=== PATIENT | male | born 1980 | race Caucasian/White ===

== ENCOUNTER 2020-09-21 22:58 | Emergency (ER) | payer BC ==
[~2020-09-21] VITALS: Ht 175.3 cm; Wt 77.1 kg
[2020-09-21 23:05] VITALS: BP_SYST 153
[2020-09-22 00:18] LABS: BASOPHILS % (AUTO) 0.3 % (0.0-2.0); EOSINOPHILS # (AUTO) 0.2 K/uL (0.0-0.4); EOSINOPHILS % (AUTO) 2.8 % (0.0-4.0); HEMATOCRIT 42.3 % (36-54); HEMOGLOBIN 14.3 g/dL (14.0-18.0); LYMPHOCYTES # (AUTO) 1.6 K/uL (1.0-5.5); LYMPHOCYTES % (AUTO) 21.7 % (20.5-51.5); MEAN CORPUSCULAR HEMOGLOBIN 31 pg (27-31); MEAN CORPUSCULAR HGB CONC 34 % (32-36); MEAN CORPUSCULAR VOLUME 91 fL (79.0-98.0); MONOCYTES # (AUTO) 0.4 K/uL (0.0-1.0); MONOCYTES % (AUTO) 5.2 % (1.7-9.3); NEUTROPHILS # (AUTO) 5.2 K/uL (1.8-7.7); PLATELET COUNT (AUTO) 258 K/uL (130-430); RED BLOOD CELL COUNT(AUTO) 4.68 MIL/uL (4.2-6.2); RED CELL DISTRIBUTION WIDTH 13.7 % (9.0-15.0); WHITE BLOOD COUNT (AUTO) 7.4 K/uL (4.8-10.8)
[2020-09-22 00:32] LABS: CALCIUM 8.6 mg/dL (8.4-11.0); CREATININE 1.17 mg/dL (0.55-1.30); POTASSIUM 3.8 mmol/L (3.5-5.1)
[2020-09-22 00:38] LABS: TOTAL BILIRUBIN 0.3 mg/dL (0.0-1.0)
[2020-09-22] MEDS ORDERED: cephALEXin 500 MG CAPSULE PO ONE (01:00)
[2020-09-22] MEDS ORDERED: CEPH250C PO (01:26)
[2020-09-22] MEDS ORDERED: DIPH25CA83 PO (01:28)
[2020-09-22 01:42] VITALS: BP_SYST 136
== END 2020-09-22 01:42 | disposition home or self-care (01) ==
LOC: SED 22:58
DX: N43.3 Hydrocele, unspecified (principal); N49.2 Inflammatory disorders of scrotum; L25.9 Unspecified contact dermatitis, unspecified cause
CPT/HCPCS: 36415; 76870-TC; 80053; 85025; 99284

== ENCOUNTER 2021-09-28 03:47 | Emergency (ER) | payer BC ==
[~2021-09-28] VITALS: Ht 175.3 cm; Wt 81.6 kg
[~2021-09-28 03:47] MED LIST: DIPH25CA83 PO
[2021-09-28 03:55] VITALS: BP_SYST 130
--- NOTE | 2021-09-28 04:01 | NUR ---
Patient to ER bed 6 to gown for evaluation. Side rails up. Report given to Mejia GREEN.
--- NOTE | 2021-09-28 04:03 | NUR ---
ER at bedside examining patient.
--- NOTE | 2021-09-28 04:13 | NUR ---
41 YR OLD MALE WITH COMPLAINT OF LACERATION TWO DAYS AGO REPAIRED AT AN URGENT CARE WITH DERMABOND AND STERI-STRIPS. PT IS CONCERNED ABOUT A MILD HEADACHE AND WANTED A WOUND CHECK BECAUSE HE WASNT SURE THAT HIS WOUND WAS PREPARED CORRECTLY. PT DENIES ANY HEALTH CONDITIONS. MD AT THE BEDSIDE, BANDAGE REMOVED AND WOUND CHECKED. WILL MONITOR NEEDED
[2021-09-28 04:15] VITALS: BP_SYST 130
--- NOTE | 2021-09-28 04:17 | NUR ---
PT WOUND COVERED WITH NEW STERILE BANDAGE AND PT PROVIDED WITH HOMECARE INSTRUCTIONS BY MD, PT ENCOUARGED TO FOLLOW UP WITH URGENT CARE INSTRUCTED PER ORIGINAL CARE MD. ALL QUESTIONS ANSWERED. PT VERBALIZED UNDERSTANDING. PT DISCHARGE WITH ALL BELONGINGS IN STABLE CONDITION
== END 2021-09-28 04:19 | disposition home or self-care (01) ==
LOC: SED 03:47
DX: S01.81XA Laceration without foreign body of other part of head, initial encounter (principal); X58.XXXA Exposure to other specified factors, initial encounter; Y93.89 Activity, other specified; Y92.89 Other specified places as the place of occurrence of the external cause; Y99.8 Other external cause status
CPT/HCPCS: 99281

== ENCOUNTER 2021-10-27 02:52 | Emergency (ER) | payer BC ==
[~2021-10-27] VITALS: Ht 175.3 cm; Wt 81.6 kg
[2021-10-27 03:00] VITALS: BP_SYST 152
--- NOTE | 2021-10-27 03:00 | NUR ---
Patient to ER bed 07 to gown for evaluation. Side rails up. Report given to PETER Galvan
--- NOTE | 2021-10-27 03:03 | NUR ---
Patient ambulatory from home complaining of left foot pain and swelling x2 days after kicking a piece of wood while practicing karate. Pain increases with ambulation. Pain 6/10.
--- NOTE | 2021-10-27 03:10 | NUR ---
LISET Milner at bedside examining patient. Addendum: 10/27/21 at 0346 by [id number] PETER Galvan
--- NOTE | 2021-10-27 03:30 | NUR ---
RAD at bedside for imaging.
[2021-10-27] MEDS ORDERED: IBUPROFEN 800 MG TABLET PO ONE (03:45)
[2021-10-27 04:14] VITALS: BP_SYST 152
--- NOTE | 2021-10-27 04:15 | NUR ---
NAHEED wrap applied to L foot. Howard well. Strong pulses noted pre/post application.
--- NOTE | 2021-10-27 04:18 | NUR ---
Patient given written and verbal discharge instructions and verbalizes understanding. ER MD Baron discussed with patient the results and treatment provided. Patient in stable condition. ID arm band removed. Patient educated on pain management and to follow up with PMD. Pain Scale 1/10. Opportunity for questions provided and answered. Medication side effect fact sheet provided.
== END 2021-10-27 04:18 | disposition home or self-care (01) ==
LOC: SED 02:52
DX: S90.32XA Contusion of left foot, initial encounter (principal); W22.8XXA Striking against or struck by other objects, initial encounter; Y93.89 Activity, other specified; Y92.89 Other specified places as the place of occurrence of the external cause; Y99.8 Other external cause status
CPT/HCPCS: 99283

== ENCOUNTER 2022-06-17 10:02 | Emergency (ER) | payer BC ==
[~2022-06-17] VITALS: Ht 175.3 cm; Wt 81.6 kg
[2022-06-17 10:23] VITALS: BP_SYST 129
--- NOTE | 2022-06-17 10:25 | NUR ---
Patient triaged and placed in waiting room. VSS and patient appears in no acute distress at this time. Accompanied by FAMILY, awaiting available bed, and MD notified of need for MSE.
--- NOTE | 2022-06-17 11:52 | NUR ---
DR COX IN [facility] FOR EXAM
[2022-06-17] MEDS ORDERED: ACET-2634 PO (12:13)
[2022-06-17] MEDS ORDERED: METH-634 PO (12:13)
[2022-06-17] MEDS ORDERED: IBUP-1969 PO (12:13)
[2022-06-17] MEDS ORDERED: KETOROLAC TROMETHAMINE 15 MG VIAL IM ONE (12:15)
[2022-06-17] MEDS ORDERED: HYDROcodone/ACETAMIN 5-325 MG TAB (NORCO/ VICODIN) PO ONE (12:15)
[2022-06-17 13:27] VITALS: BP_SYST 129
--- NOTE | 2022-06-17 13:27 | NUR ---
Patient given written and verbal discharge instructions and verbalizes understanding. ER MD discussed with patient the results and treatment provided. Patient in stable condition. ID arm band removed. Rx of TYLENOL, IBUPROFEN AND ROBAXIN given. Patient educated on pain management and to follow up with PMD. Pain Scale 0/10. Opportunity for questions provided and answered. Medication side effect fact sheet provided.
== END 2022-06-17 13:27 | disposition home or self-care (01) ==
LOC: SED 10:02
DX: M54.2 Cervicalgia (principal); R10.2 Pelvic and perineal pain; Z79.899 Other long term (current) drug therapy; V89.2XXA Person injured in unspecified motor-vehicle accident, traffic, initial encounter; Y93.89 Activity, other specified; Y92.89 Other specified places as the place of occurrence of the external cause; Y99.8 Other external cause status
CPT/HCPCS: 99283; 96372; J1885